=== PATIENT | female | born 1975 | race Caucasian/White ===

== ENCOUNTER 2023-04-04 13:49 | Observation (INO) ==
[2023-04-04] MEDS ORDERED: ZOFRAN INJ 4 MG VIAL IVP ONE (14:10)
[2023-04-04] MEDS ORDERED: NS 500 ML IV 500 ML IV ONE ×2 (14:10→14:13)
[2023-04-04] MEDS ORDERED: MORPHINE SULFATE INJ 4 MG IVP ONE (14:10)
[2023-04-04] MEDS ORDERED: CARAFATE ORAL SUSP PO ONE ×2 (14:11→14:13)
[2023-04-04] MEDS ORDERED: MORPHINE SULFATE INJ 4 MG ONE (14:13)
[2023-04-04] MEDS ORDERED: ZOFRAN INJ 4 MG VIAL ONE (14:13)
--- NOTE | 2023-04-04 14:17 | ED.ABDFE ---
HPI Time Seen Time Seen by Provider: 04/04/23 14:11 HPI Comment HPI Comment: c/o recurrent and onging epigastric pain and discomfort and bloating and nausea she states she has had upper endoscopy with dx of ulcer dis the same sx have worsened over last 2 weeks with abd distention 1 episode vomit today COVID-19 Coronavirus risk:travel/contact w/high risk person: No Has patient experienced Coronavirus symptoms: No PMH PMH Past Medical History: Hypertension and PUD Past Surgical History: Yes Surgical History: Cholecystectomy and Hysterectomy Family History Family Medical History: Hypertension Social History Do you use any recreational Drugs:: No Travel Risk Coronavirus risk:travel/contact w/high risk person: No Has patient experienced Coronavirus symptoms: No Infectious screening Isolation: Standard ROS Review of Systems Constitutional: No Symptoms Reported ENTM: No Symptoms Reported Respiratoy: No Symptoms Reported Gastrointestinal/Abdominal: Abdominal Pain and Nausea Neurological: No Symptoms Reported Endocrine: No Symptoms Reported Psychiatric: No Symptoms Reported All Other Systems: Reviewed and Negative PE Vital Signs Vitals: Vital Signs Temperature 98.3 F Pulse Rate 96 Respiratory Rate 20 Respiratory Rate 20 Respiratory Rate 16 Blood Pressure 123/66 O2 Sat by Pulse Oximetry 99 General General Appearance: Alert and Anxious Eyes Eye exam: Normal Appearance Neck Neck Exam: Normal Inspection Respiratory Respiratory Exam: Normal Lung Sounds Bilat Abdominal Exam Abdominal Tenderness: Epigastrium (moderate mid epigastric tender) Back Back Exam: Normal Inspection Neurologic Neurological Exam: Alert Skin Skin Exam: Warm and Dry MDM Differential Diagnosis Differential Diagnosis- Considerations may include:: Esophagitis and Gastritus/PUD ROR Labs Reviewed 04/04/23 14:29 04/04/23 14:29 Laboratory: WBC 5.4 X10^3/uL (3.6-10.0) 04/04/23 14:29 RBC 4.34 X10^6/uL (3.5-5.4) 04/04/23 14:29 Hgb 13.2 g/dL (12.0-16.0) 04/04/23 14:29 Hct 38.6 % (36.0-47.0) 04/04/23 14:29 MCV 88.9 fL (80.0-100.0) 04/04/23 14:29 MCH 30.4 pg (27.0-34.0) 04/04/23 14:29 MCHC 34.2 g/dL (33.0-35.0) 04/04/23 14: RDW 12.5 % (11.6-16.5) 04/04/23 14: Plt Count 177 X10^3/uL (150.0-450.0) 04/04/23 14: MPV 7.9 fL (7.4-11.0) 04/04/23 14: Neut % (Auto) 62.3 % (42.0-75.0) 04/04/23 14: Lymph % (Auto) 28.6 % (21.0-51.0) 04/04/23 14: [place] % (Auto) 8.5 % (0.0-13.0) 04/04/23 14: Eos % (Auto) 0.3 % (0.9-2.9) L 04/04/23 14: Baso % (Auto) 0.3 % (0.2-1.0) 04/04/23 14: Neut # (Auto) 3.3 x10^3/uL (2.2-4.8) 04/04/23 14: Lymph # (Auto) 1.5 X10^3/uL (1.3-2.9) 04/04/23 14:29 [place] # (Auto) 0.5 x10^3/uL (0.3-0.8) 04/04/23 14: Eos # (Auto) 0.0 x10^3/uL (0.0-0.2) 04/04/23 14: Baso # (Auto) 0.0 X10^3/uL (0.0-0.1) 04/04/23 14: Absolute Nucleated RBC 0.1 /100WBC 04/04/23 14: Sodium 137 mmol/L (136-145) 04/04/23 14:29 Corrected Sodium TNP 04/04/23 14: Potassium 3.9 mmol/L (3.5-5.1) 04/04/23 14: Chloride 100 mmol/L (98-107) 04/04/23 14: Carbon Dioxide 31.4 mmol/L (21-32) 04/04/23 14: BUN 9 mg/dL (7-18) 04/04/23 14:29 Creatinine 1.03 mg/dL (0.55-1.02) H 04/04/23 14:29 Est GFR (MDRD) Af Amer > 60 (>60) 04/04/23 14:29 Est GFR (MDRD) Non-Af > 60 (>60) 04/04/23 14:29 Glucose 96 mg/dL (65-99) 04/04/23 14:29 Calcium 8.4 mg/dL (8.5-10.1) L 04/04/23 14:29 Corrected Calcium TNP 04/04/23 14:29 Total Bilirubin 0.30 mg/dL (0.2-1.0) 04/04/23 14:29 AST 14 Units/L (15-37) L 04/04/23 14:29 ALT 15 Units/L (12-78) 04/04/23 14:29 Alkaline Phosphatase 62 Units/L (46-116) 04/04/23 14:29 Total Protein 7.6 g/dL (6.4-8.2) 04/04/23 14:29 Albumin 3.8 g/dL (3.4-5.0) 04/04/23 14:29 Globulin 3.8 g/dL (2.5-4.5) 04/04/23 14:29 Albumin/Globulin Ratio 1.0 Ratio (1.1-2.1) L 04/04/23 14:29 HCG, Qual Negative <10 mIU/mL 04/04/23 14:29 Specimen Type Clean catch urine 04/04/23 14:15 Urine Color Straw (YELLOW) 04/04/23 14:15 Urine Appearance Clear (CLEAR) 04/04/23 14:15 Urine pH 8.0 (5.0 - 8.0) 04/04/23 14:15 Ur Specific [place] 1.020 (1.000-1.030) 04/04/23 14:15 Urine Protein Negative (NEGATIVE) 04/04/23 14:15 Urine Glucose (UA) Negative (NEGATIVE) 04/04/23 14:15 Urine Ketones Negative (NEGATIVE) 04/04/23 14:15 Urine Blood 1+ (NEGATIVE) 04/04/23 14:15 Urine Nitrite Negative (NEGATIVE) 04/04/23 14:15 Urine Bilirubin Negative (NEGATIVE) 04/04/23 14:15 Urine Urobilinogen Normal (NORMAL) 04/04/23 14:15 Ur Leukocyte Esterase Negative (NEGATIVE) 04/04/23 14:15 Urine RBC 0-2 /HPF (0-3) 04/04/23 14:15 Urine WBC 0-2 /HPF (0-5) 04/04/23 14:15 Ur Squamous Epith Cells Few /HPF (NEGATIVE) 04/04/23 14:15 Urine Bacteria 2+ /HPF (NEGATIVE) 04/04/23 14:15 Ur Culture Indicated? Yes/culture set up 04/04/23 14:15 Opioid Opioid Risk Tool Age (Tone box if 16-45): No History of Preadolescent Sexual Abuse: No Total: 0 Total Score Risk Category: Low Risk Copyright: Samuel PRATT predicting aberrant behaviors Discharge Plan Diagnosis Discharge Problem: Abdominal pain Discharge Plan Patient Disposition: 09 ADMITTED INPATIENT Condition: Stable Discharge Comment: Dr Michele will admit for abd pain
[2023-04-04 14:23] LABS: BILIRUBIN,URINE NEGATIVE (NEGATIVE); BLOOD/HEMOGLOBIN,URINE 1+ (NEGATIVE); GLUCOSE, URINE NEGATIVE (NEGATIVE); KETONES,URINE NEGATIVE (NEGATIVE); LEUKOCYTE ESTERASE ,URINE NEGATIVE (NEGATIVE); NITRITES,URINE NEGATIVE (NEGATIVE); PROTEIN,URINE NEGATIVE (NEGATIVE); UROBILINOGEN,URINE NORMAL (NORMAL)
[2023-04-04 14:32] LABS: APPEARANCE,URINE CLEAR (CLEAR); BACTERIA,URINE 2+ /HPF (NEGATIVE); COLOR,URINE STRAW (YELLOW); RBC,URINE 0-2 /HPF (0-3); SQUAMOUS EPITHELIAL CELL,UR FEW /HPF (NEGATIVE)
[2023-04-04 14:39] LABS: BASOPHILS % (AUTO) 0.3 % (0.2-1.0); EOSINOPHILS % (AUTO) 0.3 % (0.9-2.9); HEMATOCRIT 38.6 % (36.0-47.0); HEMOGLOBIN 13.2 g/dL (12.0-16.0); LYMPHOCYTES # (AUTO) 1.5 X10^3/uL (1.3-2.9); LYMPHOCYTES % (AUTO) 28.6 % (21.0-51.0); MEAN CORPUSCULAR HEMOGLOBIN 30.4 pg (27.0-34.0); MEAN CORPUSCULAR HGB CONC 34.2 g/dL (33.0-35.0); MEAN CORPUSCULAR VOLUME 88.9 fL (80.0-100.0); MEAN PLATELET VOLUME 7.9 fL (7.4-11.0); MONOCYTES # (AUTO) 0.5 x10^3/uL (0.3-0.8); MONOCYTES % (AUTO) 8.5 % (0.0-13.0); NEUTROPHILS # (AUTO) 3.3 x10^3/uL (2.2-4.8); NEUTROPHILS % (AUTO) 62.3 % (42.0-75.0); PLATELET COUNT 177 X10^3/uL (150.0-450.0); RED BLOOD COUNT 4.34 X10^6/uL (3.5-5.4); RED CELL DISTRIBUTION WIDTH 12.5 % (11.6-16.5); WHITE BLOOD COUNT 5.4 X10^3/uL (3.6-10.0)
[2023-04-04 14:46] LABS: SERUM PREGNANCY TEST, QUAL NEGATIVE <10 mIU/mL
[2023-04-04 14:49] LABS: ALANINE AMINOTRANSFERASE 15 Units/L (12-78); ALBUMIN 3.8 g/dL (3.4-5.0); ALKALINE PHOSPHATASE 62 Units/L (46-116); ASPARTATE AMINO TRANSFERASE 14 Units/L (15-37); BLOOD UREA NITROGEN 9 mg/dL (7-18); CALCIUM 8.4 mg/dL (8.5-10.1); CARBON DIOXIDE 31.4 mmol/L (21-32); CHLORIDE 100 mmol/L (98-107); CREATININE 1.03 mg/dL (0.55-1.02); GLUCOSE 96 mg/dL (65-99); POTASSIUM 3.9 mmol/L (3.5-5.1); SODIUM 137 mmol/L (136-145); TOTAL PROTEIN 7.6 g/dL (6.4-8.2); eGFR NON BLACK RACES > 60 (>60)
[2023-04-04] MEDS ORDERED: NS 100 ML IV 100 ML ONE (14:53)
[2023-04-04] MEDS ORDERED: OMNIPAQUE 350 mg/mL 100 mL BTL 100 ML ONE (14:53)
--- NOTE | 2023-04-04 15:21 | CT ---
EXAM:ABDCMEN/PELVIS WITH CONHISTORY:ABD PAINCOMPARISON:CT abdomen and pelvis from 06/22/2022.TECHNIQUE:Multiple axial images of the abdomen and pelvis were obtained from the lung bases to the pubic symphysis after the administration of IV contrast. Dose reduction techniques including Automated Exposure Control (AEC) and adjustment of mA and kV were utilized.FINDINGS:Limitations: None significant.Lung bases: Trace bilateral pleural effusions.Solid visceral organs of the upper abdomen (liver, pancreas, spleen, adrenals, and kidneys):There are several low-attenuation liver lesions, the smaller of which are too small to characterize in the larger of which correspond to cysts such as at the right posterior hepatic dome measuring 1.5 cm on image 11 series 3.Biliary:The gallbladder is surgically absent with post-cholecystectomy bile duct ectasia.Urinary bladder:the urinary bladder appears unremarkable.Reproductive: Status post hysterectomy.Bowel: Diverticulosis of the colon without evidence of diverticulitis. Moderate amount of stool in the colon. Negative for bowel obstruction.Appendix: No evidence of appendicitis.Vascular: No AAA.Stomach: The stomach has a benign CT appearance.Other: No free air or significant free fluid. No pathologic adenopathy.Bones and body wall: There is grade 1 anterolisthesis of L4-L5 secondary to severe facet arthropathy.IMPRESSION:No findings to explain the patient's symptoms. Trace pleural effusions. Incidental findings as above.THIS IS AN ELECTRONICALLY VERIFIED FINAL REPORT04/04/2023 3:18 PM - Electronically signed by Gonzalez Moreira MD
[2023-04-04] MEDS ORDERED: DILAUDID INJ IVP PRN (15:34)
[2023-04-04] MEDS ORDERED: CARAFATE ORAL SUSP PO SCH (16:30)
[2023-04-04] MEDS: D5 1/2 NS 1,000 ML 1,000 ML IV SCH (17:00)
[2023-04-04 17:12] VITALS: BMI 28.1
[2023-04-04] MEDS: ZOFRAN INJ 4 MG VIAL IVP PRN (17:19)
[2023-04-04] MEDS ORDERED: ATARAX TAB 10 MG PO ONE (21:10)
[2023-04-04] MEDS ORDERED: ZANAFLEX PO PRN (21:11)
[2023-04-04] MEDS ORDERED: SEROquel TAB 25 mg PO ONE (21:12)
[2023-04-04] MEDS ORDERED: DESYREL PO ONE (21:14)
[2023-04-04] MEDS: PROTONIX INJ 40 MG VIAL IVP SCH (21:39)
[2023-04-04] MEDS: MORPHINE SULFATE INJ 4 MG IVP PRN (21:40)
[2023-04-04] MEDS ORDERED: ATARAX TAB 10 MG PO PRN (22:01)
[2023-04-05] MEDS: MORPHINE SULFATE INJ 4 MG IVP PRN ×5 (02:28→18:30)
--- NOTE | 2023-04-05 05:16 | RAD ---
EXAM:KUBHISTORY:ABDOMINAL PAIN, PARTIAL SBO;COMPARISON:NoneFINDINGS:Evaluation of the abdomen demonstrates a nonobstructive bowel gas pattern. No evidence of pneumoperitoneum. No pathologic soft tissue calcification. No acute osseous abnormality.IMPRESSION:No acute abdominal process.THIS IS AN ELECTRONICALLY VERIFIED FINAL REPORT04/05/2023 5:13 AM - Electronically signed by Drake Andrade MD
[2023-04-05 06:31] LABS: BASOPHILS % (AUTO) 0.4 % (0.2-1.0); EOSINOPHILS % (AUTO) 0.9 % (0.9-2.9); HEMATOCRIT 38.1 % (36.0-47.0); HEMOGLOBIN 13.1 g/dL (12.0-16.0); LYMPHOCYTES # (AUTO) 1.6 X10^3/uL (1.3-2.9); LYMPHOCYTES % (AUTO) 38.3 % (21.0-51.0); MEAN CORPUSCULAR HEMOGLOBIN 30.5 pg (27.0-34.0); MEAN CORPUSCULAR HGB CONC 34.3 g/dL (33.0-35.0); MEAN PLATELET VOLUME 8.2 fL (7.4-11.0); MONOCYTES # (AUTO) 0.5 x10^3/uL (0.3-0.8); MONOCYTES % (AUTO) 11.4 % (0.0-13.0); PLATELET COUNT 167 X10^3/uL (150.0-450.0); RED BLOOD COUNT 4.28 X10^6/uL (3.5-5.4); RED CELL DISTRIBUTION WIDTH 12.3 % (11.6-16.5); WHITE BLOOD COUNT 4.1 X10^3/uL (3.6-10.0)
[2023-04-05 07:27] LABS: ALANINE AMINOTRANSFERASE 15 Units/L (12-78); ALBUMIN 3.5 g/dL (3.4-5.0); ALKALINE PHOSPHATASE 57 Units/L (46-116); ASPARTATE AMINO TRANSFERASE 16 Units/L (15-37); BLOOD UREA NITROGEN 5 mg/dL (7-18); CALCIUM 8.5 mg/dL (8.5-10.1); CARBON DIOXIDE 29.6 mmol/L (21-32); CHLORIDE 104 mmol/L (98-107); CREATININE 0.92 mg/dL (0.55-1.02); GLUCOSE 84 mg/dL (65-99); MAGNESIUM 2.6 mg/dL (2.0-2.9); POTASSIUM 4.3 mmol/L (3.5-5.1); SODIUM 139 mmol/L (136-145); TOTAL PROTEIN 7.1 g/dL (6.4-8.2); eGFR NON BLACK RACES > 60 (>60)
--- NOTE | 2023-04-05 09:03 | DR.PROGNOT ---
HOSPITAL PROGRESS NOTE Progress Note for Day of: Progress Note Date: 04/05/23 Chief Complaint Chief Complaint: Complaint of right side abdominal pain and bloating feeling. Repeated KUB showed no evidence of acute changes. BUN and creatinine are normal, liver function test are normal, and CBC is normal. Abdomen is still moderately distended and tender more towards the right side and right upper quadrant, bowel sounds are hypoactive Past Medical Family Social History Past Med/Fam/Surg Hx: No changes since H&P Allergies: Allergies metoclopramide [From Reglan] Adverse Reaction (Verified 04/04/23 14:04) Review Of Systems ROS: No change since H&P Vital Signs Vital Signs: Vital Signs Temperature 98.9 F Pulse Rate [Brachial] 64 Respiratory Rate 21 Respiratory Rate 20 Respiratory Rate 20 Respiratory Rate 20 Blood Pressure [Left Arm] 95/61 O2 Sat by Pulse Oximetry 99 Physical Exam Oriented: Normal and Other (Patient is depressed, having difficulty sleeping and resting.) Respiratory: Normal Cardiovascular: Normal GI:Auscultation: Decreased GI: Tenderness: Other (Soft abdomen with moderate distention and tenderness right upper quadrant and right side which is moderate with hypoactive bowel sounds.) Speech Pattern: Clear and Appropriate Laboratory and Diagnostics 04/05/23 05:48 04/05/23 05:48 Labs: Laboratory WBC 4.1 X10^3/uL (3.6-10.0) 04/05/23 05:48 RBC 4.28 X10^6/uL (3.5-5.4) 04/05/23 05:48 Hgb 13.1 g/dL (12.0-16.0) 04/05/23 05:48 Hct 38.1 % (36.0-47.0) 04/05/23 05:48 MCV 89.0 fL (80.0-100.0) 04/05/23 05:48 MCH 30.5 pg (27.0-34.0) 04/05/23 05:48 MCHC 34.3 g/dL (33.0-35.0) 04/05/23 05:48 RDW 12.3 % (11.6-16.5) 04/05/23 05:48 Plt Count 167 X10^3/uL (150.0-450.0) 04/05/23 05:48 MPV 8.2 fL (7.4-11.0) 04/05/23 05:48 Neut % (Auto) 49.0 % (42.0-75.0) 04/05/23 05:48 Lymph % (Auto) 38.3 % (21.0-51.0) 04/05/23 05:48 [place] % (Auto) 11.4 % (0.0-13.0) 04/05/23 05:48 Eos % (Auto) 0.9 % (0.9-2.9) 04/05/23 05:48 Baso % (Auto) 0.4 % (0.2-1.0) 04/05/23 05:48 Neut # (Auto) 2.0 x10^3/uL (2.2-4.8) L 04/05/23 05:48 Lymph # (Auto) 1.6 X10^3/uL (1.3-2.9) 04/05/23 05:48 [place] # (Auto) 0.5 x10^3/uL (0.3-0.8) 04/05/23 05:48 Eos # (Auto) 0.0 x10^3/uL (0.0-0.2) 04/05/23 05:48 Baso # (Auto) 0.0 X10^3/uL (0.0-0.1) 04/05/23 05:48 Absolute Nucleated RBC 0.1 /100WBC 04/05/23 05:48 Sodium 139 mmol/L (136-145) 04/05/23 05:48 Corrected Sodium TNP 04/05/23 05:48 Potassium 4.3 mmol/L (3.5-5.1) 04/05/23 05:48 Chloride 104 mmol/L (98-107) 04/05/23 05:48 Carbon Dioxide 29.6 mmol/L (21-32) 04/05/23 05:48 BUN 5 mg/dL (7-18) L 04/05/23 05:48 Creatinine 0.92 mg/dL (0.55-1.02) 04/05/23 05:48 Est GFR (MDRD) Af Amer > 60 (>60) 04/05/23 05:48 Est GFR (MDRD) Non-Af > 60 (>60) 04/05/23 05:48 Glucose 84 mg/dL (65-99) 04/05/23 05:48 Calcium 8.5 mg/dL (8.5-10.1) 04/05/23 05:48 Corrected Calcium TNP 04/05/23 05:48 Magnesium 2.6 mg/dL (2.0-2.9) 04/05/23 05:48 Total Bilirubin 0.40 mg/dL (0.2-1.0) 04/05/23 05:48 AST 16 Units/L (15-37) 04/05/23 05:48 ALT 15 Units/L (12-78) 04/05/23 05:48 Alkaline Phosphatase 57 Units/L (46-116) 04/05/23 05:48 Total Protein 7.1 g/dL (6.4-8.2) 04/05/23 05:48 Albumin 3.5 g/dL (3.4-5.0) 04/05/23 05:48 Globulin 3.6 g/dL (2.5-4.5) 04/05/23 05:48 Albumin/Globulin Ratio 1.0 Ratio (1.1-2.1) L 04/05/23 05:48 HCG, Qual Negative <10 mIU/mL 04/04/23 14:29 Specimen Type Clean catch urine 04/04/23 14:15 Urine Color Straw (YELLOW) 04/04/23 14:15 Urine Appearance Clear (CLEAR) 04/04/23 14:15 Urine pH 8.0 (5.0 - 8.0) 04/04/23 14:15 Ur Specific [place] 1.020 (1.000-1.030) 04/04/23 14:15 Urine Protein Negative (NEGATIVE) 04/04/23 14:15 Urine Glucose (UA) Negative (NEGATIVE) 04/04/23 14:15 Urine Ketones Negative (NEGATIVE) 04/04/23 14:15 Urine Blood 1+ (NEGATIVE) 04/04/23 14:15 Urine Nitrite Negative (NEGATIVE) 04/04/23 14:15 Urine Bilirubin Negative (NEGATIVE) 04/04/23 14:15 Urine Urobilinogen Normal (NORMAL) 04/04/23 14:15 Ur Leukocyte Esterase Negative (NEGATIVE) 04/04/23 14:15 Urine RBC 0-2 /HPF (0-3) 04/04/23 14:15 Urine WBC 0-2 /HPF (0-5) 04/04/23 14:15 Ur Squamous Epith Cells Few /HPF (NEGATIVE) 04/04/23 14:15 Urine Bacteria 2+ /HPF (NEGATIVE) 04/04/23 14:15 Ur Culture Indicated? Yes/culture set up 04/04/23 14:15 Assessment and Plan 1: Abdominal pain with moderate distention rule out inflammatory bowel disease, rule out irritable bowel syndrome. To advance diet today. 2: Chronic depression, on several medications.. To discuss with Dr. El to address these medications may be cut down on some of them. Patient could benefit from psych evaluation and counseling. Problem Patient Problems: Patient Problems Abdominal pain (Acute) R10.9
[2023-04-05] MEDS: PROTONIX INJ 40 MG VIAL IVP SCH (09:33)
[2023-04-05] MEDS ORDERED: METHADONE HCL PO PRN (09:45)
[2023-04-05] MEDS ORDERED: ZANAFLEX PO PRN (09:45)
[2023-04-05] MEDS: KLONOPIN TAB 1 MG PO SCH ×2 (10:06→20:12)
[2023-04-05] MEDS: METHADONE HCL PO SCH ×2 (10:07→20:12)
[2023-04-05] MEDS: ZOFRAN INJ 4 MG VIAL IVP PRN (11:33)
[2023-04-05] MEDS: D5 1/2 NS 1,000 ML 1,000 ML IV SCH ×3 (13:37→20:09)
[2023-04-05] MEDS: CARAFATE PO SCH ×3 (13:37→20:12)
[2023-04-05] MEDS: VISTARIL PO PRN (18:12)
[2023-04-05] MEDS ORDERED: DESYREL PO SCH (21:00)
[2023-04-05] MEDS ORDERED: SEROquel TAB 25 mg PO SCH (21:00)
[2023-04-06 00:41] VITALS: RESP 20
[2023-04-06] MEDS: D5 1/2 NS 1,000 ML 1,000 ML IV SCH ×2 (02:57→09:19)
[2023-04-06] MEDS: MORPHINE SULFATE INJ 4 MG IVP PRN ×2 (02:59→07:11)
[2023-04-06] MEDS: CARAFATE PO SCH (07:01)
[2023-04-06] MEDS: ZOFRAN INJ 4 MG VIAL IVP PRN (07:01)
[2023-04-06] MEDS: VISTARIL PO PRN (08:12)
[2023-04-06] MEDS: KLONOPIN TAB 1 MG PO SCH (08:12)
[2023-04-06] MEDS: METHADONE HCL PO SCH (08:13)
[2023-04-06 08:40] VITALS: BP 103/62; PULSE 77; TEMP 98.8; O2SAT 99
[2023-04-06] MEDS ORDERED: PROTONIX TAB 40 MG PO SCH (09:00)
[2023-04-06] MEDS ORDERED: EFFEXOR XR 75 MG CAP 24-HR PO SCH (09:00)
--- NOTE | 2023-04-07 21:37 | DR.CONSULT ---
CONSULT Consultation for Day of: Date: 04/05/23 Chief Complaint Chief Complaint: Abdominal pain Allergies Allergies Allergy/AdvReac Type Severity Reaction Status Date / Time metoclopramide [From Reglan] AdvReac Verified 04/04/23 14:04 History of Present Illness History of Present Illness: Pt is a 48 year old female admitted for abdominal pain. Medicine consulted for medical management. Labs/imaging: WBC 5.4, hemoglobin 13.2, platelets 177, sodium 137, potassium 3.9, creatinine 1.03, glucose 96, CT of the abdomen and pelvis revealed: No findings to explain the patient's symptoms. Trace pleural effusions. Incidental findings as above. KUB obtained in the morning revealed: No acute abdominal process. Patient was admitted and determined to have acute gastritis. Symptoms possibly related to polypharmacy. She has been experiencing more depression that medications have been not helping as they had been before. She would like to go to an inpatient treatment center to have medications adjusted and possibly weaned off other medications. Patient is discharged in stable condition, she denies suicidal/homicidal ideations. She will be taken by her to [facility] psychiatric facility in [place], [place] for further evaluation and treatment. Past Medical History Past Medical History: Hypertension and PUD Past Surgical History Surgical History: Cholecystectomy, Hysterectomy and Ortho Surgery Family History Family Medical History: [place], Coronary Artery Disease, Sudden Cardiac and Hypertension Social History Does patient currently use any type of tobacco product: No Have you used tobacco products in the last 12 months: No Type of Tobacco Use: None Alcohol Use: None Drug Use: None Medications Home Medications: metoclopramide [From Reglan] Adverse Reaction (Verified 04/04/23 14:04) CONTINUE taking the following medications clonazepam 1 mg tablet 1 - 2 mg PO BID 04/04/23 [History] Review of Systems Constitutional: No Symptoms Reported Eyes: No Symptoms Reported ENT: No Symptoms Reported Respiratory: No Symptoms Reported Cardiovascular: No Symptoms Reported Gastrointestinal: Abdominal Pain Genitourinary: No Symptoms Reported Musculoskeletal: No Symptoms Reported Skin: No Symptoms Reported Neurological: No Symptoms Reported Physical Exam Vital Signs: Vital Signs Temperature 98.8 F Temperature 98.2 F Pulse Rate [Brachial] 77 Pulse Rate [Brachial] 81 Respiratory Rate 20 Respiratory Rate 20 Respiratory Rate 18 Respiratory Rate 20 Respiratory Rate 20 Respiratory Rate 20 Respiratory Rate 20 Respiratory Rate 20 Blood Pressure [Left Arm] 103/62 Blood Pressure [Left Arm] 109/66 O2 Sat by Pulse Oximetry 99 O2 Sat by Pulse Oximetry 100 Oriented: Normal Eyes: Normal Respiratory: Clear Throughout Cardiovascular: Normal : Normal Auscultation: Bowel Sounds: Normal Palpation: Normal Tenderness: Epigastric and Mild Skin: Normal Musculoskeletal: Normal Psychiatric: Depression Speech Pattern: Clear Plan (1) Mixed anxiety depressive disorder: Status: None Narrative Support Text: Patient discharged in stable condition. She has been accepted to [facility] in [facility] for further psychiatric treatment. She will be taken there by her . (2) Acute gastritis: Status: Acute Narrative Support Text: Work-up negative. Supportive treatment and outpatient.
== END 2023-04-06 11:05 | disposition home or self-care (01) ==
LOC: ER 13:49 → MED/SURG 13:49
PROVIDERS: ADMIT Surgery; ATTEND Surgery